=== PATIENT | female | born 1955 | race Caucasian/White ===

== ENCOUNTER 2016-11-22 20:28 | Emergency (ER) | payer OTHER ==
[~2016-11-22] VITALS: Ht 177.8 cm; Wt 118.5 kg
[~2016-11-22 20:28] MED LIST: CHOL100062 PO; DEXT15DR2 BOTH EYES; FLUT9.9S NASAL; PANT40TA3 PO; PYRI50TA80 PO; RANI150T9 PO; TRAM50TA2 PO
[2016-11-22 21:04] VITALS: Ht 177.8 cm; Wt 118.5 kg
[2016-11-23] MEDS ORDERED: HYDROCODONE/APAP (5/325) TAB PO ONE (01:00)
[2016-11-23 01:28] VITALS: BP 148/86; PULSE 57; RESP 16
--- NOTE | 2016-11-23 02:10 | RADRPT ---
PROCEDURE: CHEST - 1 VIEW CLINICAL INDICATION: 61-year-old female with back pain and cough. TECHNIQUE: A single frontal AP portable view of the chest was performed. The images were reviewed on a PACS workstation. COMPARISON: None. FINDINGS: The cardiomediastinal silhouette has a normal appearance. There is no evidence for an infiltrate. There is no evidence for congestive heart failure. There is no evidence for pneumothorax. The osseou s structures are intact. IMPRESSION: No evidence for active cardiopulmonary disease. .Hunter Martinez MD, MD Date Time Electronically viewed and signed by .Hunter Martinez MD, on 11/23/2016 02:09 .M/
--- NOTE | 2016-11-23 02:14 | ERD ---
ER Documentation Chief Complaint Date/Time DATE: 11/23/16 TIME: 02:14 Chief Complaint bacxk pain x 3 days HPI This a 7-year-old female who presents the emergency department today complaining of middle back pain for the past 3 days. Patient states she has had a cough for the past 3 months. Denies any trauma. States that she previously took antibiotics but she is unsure of the names. States she is taking Tylenol Excedrin for pain. States that she did have parathyroid removed several years ago. States that she has tried a nebulizer in the past. States that her pain is worse with movement. Denies any fevers or chills, sore throat , chest pain or difficulty breathing ROS All systems reviewed and are negative except as per history of present illness. Medications Home Meds Active Scripts Cetirizine Hcl* (Zyrtec*) 10 Mg Capsule, 10 MG PO DAILY, #14 TAB.CHEW Prov:AMY CAVAZOS PA-C 11/23/16 Azithromycin* (Zithromax*) 250 Mg Tablet, 250 MG PO .RASHAAD DIRECTED, #6 TAB TAKE 500 MG (2 TABS) THE FIRST DAY THEN 250 MG (1 TAB) DAYS 2-5 Prov:AMY CAVAZOS PA-C 11/23/16 Tramadol HCl (Tramadol HCl) 50 Mg Tablet, 50 MG PO Q4 Y for PAIN, #20 TAB Prov:AMY CAVAZOS PA-C 11/23/16 Naproxen* (Naprosyn*) 500 Mg Tablet, 500 MG PO BID Y for PAIN AND/OR INFLAMMATION, #30 TAB Prov:AMY CAVAZOS PA-C 11/23/16 Ranitidine Hcl* (Zantac*) 150 Mg Tablet, 150 MG PO BID Y for EPIGASTRIC PAIN, # 30 TAB Prov:JOAN FRY DO 03/30/16 Tramadol HCl (Tramadol HCl) 50 Mg Tablet, 50 MG PO Q8, #20 TAB Prov:JOAN FRY DO 03/30/16 Reported Medications Pyridoxine Hcl (Vitamin B6) 50 Mg Tab, 50 MG PO DAILY, TAB 03/30/16 Cholecalciferol* (Vitamin D3*) 1,000 Unit Tablet, 2000 UNIT PO DAILY, TAB 8/25/16 Dextran/Hypromellose/Glycerin (Artificial Tears Drops) 15 Ml Drops, 2 DROP BOTH EYES Q6, EA 03/30/16 Fluticasone Propionate (Flonase Allergy Relief) 9.9 Ml [place].susp, 2 SPRAY NASAL DAILY, #1 BOTTLE TO EACH NOSTRIL 03/30/16 Pantoprazole* (Protonix*) 40 Mg Tablet.dr, 40 MG PO DAILY, TAB 03/30/16 Allergies Allergies: Coded Allergies: No Known Allergy (Unverified , 03/30/16) PMhx/Soc History of Surgery: Yes (,GASTRIC SURGERY, ADNOIDECTOMY) Anesthesia Reaction: No Hx Neurological Disorder: No Hx Respiratory Disorders: Yes (HX SOB) Hx Miscellaneous Medical Probl: Yes (KNEE PAIN, THROID) Hx Alcohol Use: No Hx Substance Use: No Hx Tobacco Use: No Smoking Status: Never smoker Physical Exam Vitals Vital Signs Date Time Temp Pulse Resp B/P Pulse Ox O2 Delivery O2 Flow Rate FiO2 11/23/16 01:28 57 16 148/86 98 Room Air 11/22/16 21:04 98.4 73 20 142/88 99 Physical Exam Const: Obese, no acute distress Head: Atraumatic Eyes: Normal Conjunctiva ENT: Normal External Ears, Nose and Mouth. Neck: Full range of motion..~ No meningismus. Resp: Clear to auscultation bilaterally. No absent breath sounds. No wheezing. Bilateral paraspinal tenderness thoracic spine. Cardio: Regular rate and rhythm, no murmurs Abd: Soft, non tender, non distended. Normal bowel sounds Skin: No petechiae or rashes Ext no cyanosis or edema. No erythema or warmth. No swelling. Nontender gastroc bilaterally Neur: Awake and alert Psych: Normal Mood and Affect Results 24 hrs Current Medications Medications (Trade) Dose Ordered Sig/Shauna Route PRN Reason Start Time Stop Time Status Last Admin Dose Admin Acetaminophen/ Hydrocodone Bitart ([place] (5/325)) 1 tab ONCE ONCE PO 11/23/16 01:00 11/23/16 01:01 DC 11/23/16 01:00 DIAGNOSTIC IMAGING REPORT Patient: ALDAIR RANKIN : 1955 Age: 61 Sex: F MR #: [id number] DOS: 11/23/16 0000 Ordering MD: AMY CAVAZOS PA-C Location: [facility] Room/Bed: PROCEDURE: CHEST - 1 VIEW CLINICAL INDICATION: 61-year-old female with back pain and cough. TECHNIQUE: A single frontal AP portable view of the chest was performed. The images were reviewed on a PACS workstation. COMPARISON: None. FINDINGS: The cardiomediastinal silhouette has a normal appearance. There is no evidence for an infiltrate. There is no evidence for congestive heart failure. There is no evidence for pneumothorax. The osseous structures are intact. IMPRESSION: No evidence for active cardiopulmonary disease. .Hunter Martinez MD, MD Date Time Electronically viewed and signed by .Hunter Martinez MD, MD on 11/23/2016 02:09 .M/ CC: AMY CAVAZOS PA-C Procedures/MDM This a 61-year-old female who presents the emergency department today complaining of pain in the middle of her back for the past 3 days. Patient states she has had a persistent cough for the past 3 months. Patient was instructed to come here to the emergency department by urgent care. Given patient's duration of cough as well as her history of thyroid mass and removal I did obtain a chest x-ray. Chest x-ray shows no evidence for active cardiopulmonary disease. No evidence for infiltrate. No evidence for congestive heart failure. No evidence for pneumothorax. Patient had bilateral paraspinal tenderness in her thoracic area. She has not had a fall and I do not feel she requires dedicated thoracic spine films of the low suspicion for acute fracture dislocation. Patient is afebrile and otherwise well-appearing. Her oxygen saturation is 99%. Her respirations are 20. She is not tachycardic. She has no calf pain and does not report any shortness of breath. Low suspicion for PE, abscess, pleural effusion, pneumonia. I do not feel that she requires laboratory workup or further imaging at this time. Patient has persistent cough of uncertain etiology however given the duration of symptoms I will give her a prescription for azithromycin to treat possible bronchitis. Patient was also given a prescription for tramadol for severe pain in her back pain may be related to musculoskeletal related pain secondary to persistent cough. She was also given a prescription for Naprosyn as well as Zyrtec for possible allergy related cough. Patient was given Ring[place] here in the emergency department. At this time the patient is stable for discharge and outpatient management. Patient should follow up with their PCP in the next 1-2 days. They may return to the emergency department sooner for any persistent or worsening of symptoms. Patient understood and agreed with the plan. Departure Diagnosis: Primary Impression: Cough Additional Impression: Back pain Back pain location: thoracic back pain Chronicity: unspecified Back pain laterality: bilateral Qualified Code: M54.6 - Bilateral thoracic back pain, unspecified chronicity Condition: AMY Sifuentes PA-C Nov 23, 2016 02:14
[2016-11-23] MEDS ORDERED: TRAM50TA2 PO (02:15)
[2016-11-23] MEDS ORDERED: NAPR-260 PO (02:15)
[2016-11-23] MEDS ORDERED: AZIT250T94 PO (02:15)
[2016-11-23] MEDS ORDERED: CETI10CA PO (02:16)
== END 2016-11-23 02:31 | disposition home or self-care (01) ==
LOC: FTE 20:28
DX: R05 Cough (principal)
CPT/HCPCS: 71010